=== PATIENT | female | born 1960 | race Caucasian/White ===

== ENCOUNTER 2016-08-03 15:38 | Emergency (ER) | payer SELFPAY ==
[2016-08-03 16:12] VITALS: BP 139/86
--- NOTE | 2016-08-03 16:17 | ER Document Report ---
ED Medical Screen (RME) - General Stated Complaint: RASH Mode of Arrival: Ambulatory Information source: Patient Notes: She presents emergency department with complaints of severe rash to her back and in between her breasts for the past 2 months. She reports areas are Painful. She reports at times it blisters up. Denies fever vomiting diarrhea. She reports she's been treated for trigeminal neurology. Came here today for severe pain. I have greeted and performed a rapid initial assessment of this patient. A comprehensive ED assessment and evaluation of the patient, analysis of test results and completion of the medical decision making process will be conducted by additional ED providers. TRAVEL OUTSIDE OF THE [place] IN LAST 30 DAYS: No - Related Data Allergies/Adverse Reactions: codeine [Codeine] Allergy (Verified 10/13/14 08:58) n/v acetaminophen [From Percocet] Adverse Reaction (Verified 10/13/14 08:58) n/v oxycodone HCl [From Percocet] Adverse Reaction (Verified 10/13/14 08:58) n/v Past Medical History Past Surgical History: Reports: Hx Tubal Ligation - Immunizations Hx Diphtheria, Pertussis, Tetanus Vaccination: Yes Physical Exam - Vital signs Vitals: Temp Pulse Resp BP Pulse Ox 98.6 F 78 18 139/86 H 97 08/03/16 16:11 08/03/16 16:11 08/03/16 16:11 08/03/16 16:11 08/03/16 16:11 Course - Vital Signs Vital signs: Temp Pulse Resp BP Pulse Ox 98.6 F 78 18 139/86 H 97 08/03/16 16:11 08/03/16 16:11 08/03/16 16:11 08/03/16 16:11 08/03/16 16:11
[2016-08-03 16:40] LABS: ABSOLUTE EOSINOPHILS # (AUTO) 0.3 10^3/uL (0.0-0.6); ABSOLUTE LYMPHOCYTES (AUTO) 1.2 10^3/uL (0.5-4.7); ABSOLUTE MONOCYTES (AUTO) 0.5 10^3/uL (0.1-1.4); ABSOLUTE NEUT (AUTO) 2.3 10^3/uL (1.7-8.2); EOSINOPHILS % (AUTO) 6.7 % (0-6); HEMATOCRIT 43.5 % (36.0-47.0); HEMOGLOBIN 14.9 g/dL (12.0-15.5); HGB HCT DIFFERENCE 1.2; LYMPHOCYTES % (AUTO) 27.6 % (13-45); MEAN CORPUSCULAR HEMOGLOBIN 31.9 pg (27.0-33.4); MEAN CORPUSCULAR HGB CONC 34.3 g/dL (32.0-36.0); MEAN CORPUSCULAR VOLUME 93 fl (80-97); MONOCYTES % (AUTO) 10.8 % (3-13); RED BLOOD COUNT 4.69 10^6/uL (3.72-5.28); RED CELL DISTRIBUTION WIDTH 12.9 % (11.5-14.0); SEGMENTED NEUTROPHILS % (AUTO) 53.9 % (42-78); WHITE BLOOD COUNT 4.3 10^3/uL (4.0-10.5)
[2016-08-03 16:57] LABS: ALANINE AMINOTRANSFERASE 24 U/L (9-52); ALKALINE PHOSPHATASE 36 U/L (38-126); ANION GAP 13 (5-19); ASPARTATE AMINO TRANSFERASE 21 U/L (14-36); BILIRUBIN,DIRECT 0.3 mg/dL (0.0-0.4); BILIRUBIN,TOTAL 0.4 mg/dL (0.2-1.3); BLOOD UREA NITROGEN 10 mg/dL (7-20); CALCIUM 9.5 mg/dL (8.4-10.2); CARBON DIOXIDE 26 mmol/L (22-30); CHLORIDE 107 mmol/L (98-107); CREATININE RESULT 0.78 mg/dL (0.52-1.25); GLUCOSE 103 mg/dL (75-110); POTASSIUM 3.5 mmol/L (3.6-5.0); SODIUM 145.7 mmol/L (137-145); TOTAL PROTEIN 6.7 g/dL (6.3-8.2)
== END 2016-08-03 20:18 | disposition left against medical advice (07) ==
LOC: ER 15:38
DX: R21 Rash and other nonspecific skin eruption (principal); Z53.20 Procedure and treatment not carried out because of patient's decision for unspecified reasons; Z88.5 Allergy status to narcotic agent
CPT/HCPCS: 36415; 80053; 85025; 99281

== ENCOUNTER 2016-08-04 18:40 | Emergency (ER) | payer SELFPAY ==
[2016-08-04 18:54] VITALS: BP 140/83
--- NOTE | 2016-08-04 20:17 | ER Document Report ---
ED Medical Screen (RME) - General Stated Complaint: ABCESS Mode of Arrival: Ambulatory Information source: Patient Notes: Patient with erythematous rash that started to trunk 2 months ago. Area is painful and pruritic. 2 weeks ago patient started to lose bruising along the periphery of the Marlon. Patient with petechial rash to lower extremities. Patient is currently being treated for migraines in her jaw as well as trigeminal neuralgia. hx: none I have greeted and performed a rapid initial assessment of this patient. A comprehensive ED assessment and evaluation of the patient, analysis of test results and completion of the medical decision making process will be conducted by additional ED providers. TRAVEL OUTSIDE OF THE [place] IN LAST 30 DAYS: No - Related Data Allergies/Adverse Reactions: codeine [Codeine] Allergy (Verified 08/03/16 16:17) n/v acetaminophen [From Percocet] Adverse Reaction (Verified 08/03/16 16:17) n/v oxycodone HCl [From Percocet] Adverse Reaction (Verified 08/03/16 16:17) n/v Past Medical History Renal/ Medical History: Denies: Hx Peritoneal Dialysis Past Surgical History: Reports: Hx Tubal Ligation - Immunizations Hx Diphtheria, Pertussis, Tetanus Vaccination: Yes Physical Exam - Vital signs Vitals: Temp Pulse Resp BP Pulse Ox 98.6 F 87 16 140/83 H 97 08/04/16 18:53 08/04/16 18:53 08/04/16 18:53 08/04/16 18:53 08/04/16 18:53 - Skin Skin Color: Petechiae - Bilateral lower extremities, Ecchymosis - Sacral area, lateral lower trunk Irregularity with: Tenderness, Inflammation Course - Vital Signs Vital signs: Temp Pulse Resp BP Pulse Ox 98.6 F 87 16 140/83 H 97 08/04/16 18:53 08/04/16 18:53 08/04/16 18:53 08/04/16 18:53 08/04/16 18:53
[2016-08-04 20:47] LABS: ABSOLUTE EOSINOPHILS # (AUTO) 0.4 10^3/uL (0.0-0.6); ABSOLUTE LYMPHOCYTES (AUTO) 1.5 10^3/uL (0.5-4.7); ABSOLUTE MONOCYTES (AUTO) 0.5 10^3/uL (0.1-1.4); BASOPHILS % (AUTO) 0.9 % (0-2); EOSINOPHILS % (AUTO) 7.5 % (0-6); HEMATOCRIT 44.2 % (36.0-47.0); HEMOGLOBIN 15.1 g/dL (12.0-15.5); HGB HCT DIFFERENCE 1.1; LYMPHOCYTES % (AUTO) 27.9 % (13-45); MEAN CORPUSCULAR HEMOGLOBIN 31.6 pg (27.0-33.4); MEAN CORPUSCULAR HGB CONC 34.2 g/dL (32.0-36.0); MEAN CORPUSCULAR VOLUME 92 fl (80-97); MONOCYTES % (AUTO) 9.4 % (3-13); RED BLOOD COUNT 4.78 10^6/uL (3.72-5.28); SEGMENTED NEUTROPHILS % (AUTO) 54.3 % (42-78); WHITE BLOOD COUNT 5.5 10^3/uL (4.0-10.5)
[2016-08-04 21:05] LABS: PROTHROMBIN TIME 13.2 SEC (11.4-15.4)
[2016-08-04 21:06] LABS: PARTIAL THROMBOPLASTIN TIME 29.1 SEC (23.5-35.8)
[2016-08-04 21:07] LABS: ALANINE AMINOTRANSFERASE 24 U/L (9-52); ALBUMIN 4.2 g/dL (3.5-5.0); ALKALINE PHOSPHATASE 38 U/L (38-126); ANION GAP 10 (5-19); ASPARTATE AMINO TRANSFERASE 23 U/L (14-36); BILIRUBIN,DIRECT 0.2 mg/dL (0.0-0.4); BILIRUBIN,TOTAL 0.3 mg/dL (0.2-1.3); BLOOD UREA NITROGEN 10 mg/dL (7-20); C-REACTIVE PROTEIN 13.4 mg/L (<10.0); CALCIUM 9.8 mg/dL (8.4-10.2); CARBON DIOXIDE 27 mmol/L (22-30); CHLORIDE 107 mmol/L (98-107); CREATININE RESULT 0.82 mg/dL (0.52-1.25); GLUCOSE 94 mg/dL (75-110); POTASSIUM 3.9 mmol/L (3.6-5.0); SODIUM 143.8 mmol/L (137-145); TOTAL PROTEIN 7.1 g/dL (6.3-8.2)
[2016-08-04 22:02] LABS: ERYTHROCYTE SEDIMENTATION RATE 31 mm/hr (0-30)
== END 2016-08-04 23:00 | disposition left against medical advice (07) ==
LOC: ER 18:40
DX: R21 Rash and other nonspecific skin eruption (principal); R23.3 Spontaneous ecchymoses; G43.909 Migraine, unspecified, not intractable, without status migrainosus; G50.0 Trigeminal neuralgia; Z88.5 Allergy status to narcotic agent; Z53.20 Procedure and treatment not carried out because of patient's decision for unspecified reasons
CPT/HCPCS: 36415; 80053; 85025; 85610; 85652; 85730; 86140; 99281

== ENCOUNTER 2018-07-19 14:07 | Emergency (ER) | payer SELFPAY ==
[2018-07-19] MEDS ORDERED: RINGERS SOLUTION,LACTATED 1,000 ML IV ONE (14:43)
--- NOTE | 2018-07-19 14:44 | ER Document Report ---
ED Medical Screen (RME) - General Chief Complaint: Flank Pain Stated Complaint: SIDE PAIN Time Seen by Provider: 07/19/18 14:43 Mode of Arrival: Ambulatory Information source: Patient Notes: This is a 58-year-old female with a history of trigeminal neuralgia, bladder tumor (status post resection) who presents to the emergency room with 3-day history of right flank pain, hematuria, nausea, generalized weakness. TRAVEL OUTSIDE OF THE [place] IN LAST 30 DAYS: No - Related Data Allergies/Adverse Reactions: codeine [Codeine] Allergy (Verified 07/19/18 14:12) n/v acetaminophen [From Percocet] Adverse Reaction (Verified 07/19/18 14:12) n/v oxycodone HCl [From Percocet] Adverse Reaction (Verified 07/19/18 14:12) n/v Past Medical History - Social History Chew tobacco use (# tins/day): No Frequency of alcohol use: None Drug Abuse: None Renal/ Medical History: Denies: Hx Peritoneal Dialysis Psychiatric Medical History: Reports: Hx Depression Past Surgical History: Reports: Hx Abdominal Surgery - bladder tumor removed, Hx Tubal Ligation - Immunizations Hx Diphtheria, Pertussis, Tetanus Vaccination: Yes Physical Exam - Vital signs Vitals: Temp Pulse Resp BP Pulse Ox 99.1 F 136 H 17 135/69 H 96 07/19/18 14:18 07/19/18 14:18 07/19/18 14:18 07/19/18 14:18 07/19/18 14:18 Course - Vital Signs Vital signs: Temp Pulse Resp BP Pulse Ox 99.1 F 136 H 17 135/69 H 96 07/19/18 14:18 07/19/18 14:18 07/19/18 14:18 07/19/18 14:18 07/19/18 14:18
[2018-07-19 15:27] LABS: ABSOLUTE EOSINOPHILS # (AUTO) 0.1 10^3/uL (0.0-0.6); ABSOLUTE LYMPHOCYTES (AUTO) 1.4 10^3/uL (0.5-4.7); ABSOLUTE MONOCYTES (AUTO) 1.1 10^3/uL (0.1-1.4); ABSOLUTE NEUT (AUTO) 6.7 10^3/uL (1.7-8.2); BASOPHILS % (AUTO) 0.4 % (0-2); EOSINOPHILS % (AUTO) 0.8 % (0-6); HEMATOCRIT 35.5 % (36.0-47.0); HEMOGLOBIN 11.7 g/dL (12.0-15.5); LYMPHOCYTES % (AUTO) 15.2 % (13-45); MEAN CORPUSCULAR HEMOGLOBIN 25.4 pg (27.0-33.4); MEAN CORPUSCULAR VOLUME 77 fl (80-97); MONOCYTES % (AUTO) 12.1 % (3-13); PLATELET COUNT 290 10^3/uL (150-450); RED CELL DISTRIBUTION WIDTH 17.4 % (11.5-14.0); SEGMENTED NEUTROPHILS % (AUTO) 71.5 % (42-78); TOTAL CELLS COUNTED % (AUTO) 100 %; WHITE BLOOD COUNT 9.3 10^3/uL (4.0-10.5)
[2018-07-19 15:35] LABS: APPEARANCE,URINE CLOUDY; BILIRUBIN,URINE NEGATIVE (NEGATIVE); COLOR,URINE AMBER; GLUCOSE, URINE NEGATIVE (NEGATIVE); KETONES,URINE NEGATIVE (NEGATIVE); LEUKOCYTE ESTERASE,URINE NEGATIVE (NEGATIVE); NITRITE,URINE NEGATIVE (NEGATIVE); PROTEIN,URINE 100 mg/dL (NEGATIVE); URINE SPECIFIC GRAVITY 1.024; UROBILINOGEN,URINE NEGATIVE mg/dL (<2.0)
[2018-07-19 15:44] LABS: ALANINE AMINOTRANSFERASE 22 U/L (9-52); ALBUMIN 4.4 g/dL (3.5-5.0); ALKALINE PHOSPHATASE 41 U/L (38-126); ANION GAP 10 (5-19); ASPARTATE AMINO TRANSFERASE 23 U/L (14-36); BILIRUBIN,DIRECT 0.2 mg/dL (0.0-0.4); BILIRUBIN,TOTAL 0.3 mg/dL (0.2-1.3); BLOOD UREA NITROGEN 11 mg/dL (7-20); CALCIUM 10.2 mg/dL (8.4-10.2); CARBON DIOXIDE 29 mmol/L (22-30); CHLORIDE 101 mmol/L (98-107); GLUCOSE 112 mg/dL (75-110); POTASSIUM 4.5 mmol/L (3.6-5.0); TOTAL PROTEIN 7.7 g/dL (6.3-8.2)
--- NOTE | 2018-07-19 16:07 | RADIOLOGY REPORT (SQ) ---
EXAM DESCRIPTION: CT ABD/PELVIS NO ORAL OR IV COMPLETED DATE/TIME: 07/19/2018 3:49 pm REASON FOR STUDY: right flank pain COMPARISON: None. TECHNIQUE: CT scan of the abdomen and pelvis performed without intravenous or oral contrast. Images reviewed with lung, soft tissue, and bone windows. Reconstructed coronal and sagittal MPR images revi ewed. All images stored on PACS. All CT scanners at this facility use dose modulation, iterative reconstruction, and/or weight based d osing when appropriate to reduce radiation dose to as low as reasonably achievable (ALARA). [facility]: Dose Right [facility]: CareDose [facility]: Dose Right [facility]: Teradose 4D [facility]: [employer] RADIATION DOSE: CT Rad equipment meets quality standard of care and radiation dose reduction techniq ues were employed. CTDIvol: 7.0 mGy. DLP: 347 mGy-cm.mGy. LIMITATIONS: None. FINDINGS: LOWER CHEST: 2 cm pleural-based nodule right lower lobe. Trace right pleural effusion and associated airspace disease. NON-CONTRASTED LIVER, SPLEEN, ADRENALS: Evaluation limited by lack of IV contrast. No identified sign ificant masses. PANCREAS: No masses. No peripancreatic inflammatory changes. GALLBLADDER: No identified stones by CT criteria. No inflammatory changes to suggest cholecystitis. RIGHT KIDNEY AND URETER: No suspicious masses. Assessment limited by lack of IV contrast. No signif icant calcifications. No hydronephrosis or hydroureter. LEFT KIDNEY AND URETER: No suspicious masses. Assessment limited by lack of IV contrast. No signifi cant calcifications. No hydronephrosis or hydroureter. AORTA AND RETROPERITONEUM: No aneurysm. No retroperitoneal masses or adenopathy. BOWEL AND PERITONEAL CAVITY: No obvious masses or inflammatory changes. No free fluid. APPENDIX: Normal. PELVIS, BLADDER, AND ABDOMINAL WALL:No abnormal masses. No free fluid. Bladder normal. BONES: No significant findings. OTHER: No other significant finding. IMPRESSION: 1. No acute findings in the abdomen. 2. 2 cm pulmonary nodule right lower lobe. Trace right pleural effusion and associated airspace dise ase, atelectasis versus pneumonia. COMMENT: Quality ID # [id number]: Final reports with documentation of one or more dose reduction techniques (e.g., Automated exposure control, adjustment of the mA and/or kV according to patient size, use of iterative reconstruction technique) TECHNICAL DOCUMENTATION: JOB ID: [id number] [employer]- All Rights Reserved Reading location - IP/workstation name: [email or web address]
--- NOTE | 2018-07-19 16:32 | ER Document Report ---
ED General - General Chief Complaint: Flank Pain Stated Complaint: SIDE PAIN Time Seen by Provider: 07/19/18 14:43 Mode of Arrival: Ambulatory Notes: 58-year-old female to the emergency department for evaluation of hematuria and right lower chest pain and shortness of breath. Patient states that she had some sort of bladder tumor which was benign. Had surgery over a year ago. Has not had any problems since that time. Denies any dysuria. States that urine was quite red today. No history of kidney stones. States that it really hurts in the right side of her chest when she takes a deep breath. Denies any trauma. Patient is a heavy smoker. Intermittent fevers. Worsening cough. TRAVEL OUTSIDE OF THE [place] IN LAST 30 DAYS: No - HPI Onset: Yesterday Onset/Duration: Gradual Quality of pain: Sharp Severity: Moderate Pain Level: 3 Associated symptoms: Nonproductive cough, Fever Exacerbated by: Coughing, Deep breathing - Related Data Allergies/Adverse Reactions: codeine [Codeine] Allergy (Verified 07/19/18 14:12) n/v acetaminophen [From Percocet] Adverse Reaction (Verified 07/19/18 14:12) n/v oxycodone HCl [From Percocet] Adverse Reaction (Verified 07/19/18 14:12) n/v Past Medical History - General Information source: Patient - Social History Smoking Status: Current Every Day Smoker Chew tobacco use (# tins/day): No Frequency of alcohol use: None Drug Abuse: None Family History: Reviewed & Not Pertinent Patient has suicidal ideation: No Patient has homicidal ideation: No Renal/ Medical History: Denies: Hx Peritoneal Dialysis Psychiatric Medical History: Reports: Hx Depression Past Surgical History: Reports: Hx Abdominal Surgery - bladder tumor removed, Hx Tubal Ligation - Immunizations Hx Diphtheria, Pertussis, Tetanus Vaccination: Yes Review of Systems - Review of Systems Notes: Constitutional: denies: Chills, Diaphoresis, Malaise, Weakness. Positive for fever EENT: denies: Eye discharge, Blurred vision, Tearing, Double vision, Nose congestion, Nose discharge, Throat swelling, Mouth pain Cardiovascular: denies: Palpitations, Heart racing, Orthopnea, +Dyspnea, +Chest pain Respiratory: +Cough, Hurts to breathe, Wheezing, +Shortness of breath Gastrointestinal: denies: Abdominal pain, Diarrhea, Nausea, Vomiting, Black stools, bright red blood in stool Genitourinary: denies: Burning, Dysuria, Discharge, Frequency, Flank pain, +Hematuria Musculoskeletal: denies: Joint pain, Joint swelling, Muscle pain, Muscle stiffness, back pain Hematologic/Lymphatic: denies: Anemia, Easy bleeding, Easy bruising, Blood clots Neurological/Psychological: denies: Confusion, Dementia, Depression, Loss of consciousness Skin: No lesions, no masses, no skin breakdown, no abscesses Physical Exam - Vital signs Vitals: Temp Pulse Resp BP Pulse Ox 99.1 F 136 H 17 135/69 H 96 07/19/18 14:18 07/19/18 14:18 07/19/18 14:18 07/19/18 14:18 07/19/18 14:18 Interpretation: Normal - General General appearance: Appears well, Alert - HEENT Head: Normocephalic, Atraumatic Eyes: Normal Pupils: PERRL - Respiratory Respiratory status: No respiratory distress Chest status: Pain with deep breathing Breath sounds: Wheezing, Other - Crackle at the right base not relieved with coughing Chest palpation: Normal - Cardiovascular Rhythm: Regular Heart sounds: Normal auscultation Murmur: No - Abdominal Inspection: Normal Distension: No distension Bowel sounds: Normal Tenderness: Nontender. No: Kathleen's sign, Guarding, Rebound Organomegaly: No organomegaly - Back Back: Normal, Nontender - Extremities General upper extremity: Normal inspection, Nontender, Normal color, Normal ROM, Normal temperature General lower extremity: Normal inspection, Nontender, Normal color, Normal ROM, Normal temperature, Normal weight bearing. No: Sachin's sign - Neurological Neuro grossly intact: Yes Cognition: Normal Orientation: AAOx4 Gilda Coma Scale Eye Opening: Spontaneous [place] Coma Scale Verbal: Oriented Gilda Coma Scale Motor: Obeys Commands [place] Coma Scale Total: 15 Speech: Normal Motor strength normal: LUE, RUE, LLE, RLE Sensory: Normal - Psychological Associated symptoms: Normal affect, Normal mood - Skin Skin Temperature: Warm Skin Moisture: Dry Skin Color: Normal Course - Re-evaluation Re-evalutation: 07/19/18 19:17 Abdomen/Pelvis CT 07/19/18 14:44 IMPRESSION: 1. No acute findings in the abdomen. 2. 2 cm pulmonary nodule right lower lobe. Trace right pleural effusion and associated airspace disease, atelectasis versus pneumonia. Chest CT 07/19/18 17:33 IMPRESSION: There is a 2.1 cm irregularly-shaped nodule in the posterior segment of the right lower lobe with some spiculated margins. There are scattered areas of subsegmental atelectasis -airspace disease in the inferior aspect of the right upper lobe. There is a small right pleural effusion with some irregular contour suggesting possible loculation and soft tissue thickening. Bulky adenopathy in the right hilus, subcarinal, and paratracheal locations, measuring up to 3 cm in diameter. Main airways appear patent though slightly narrowed in the right hilus. Laboratory 07/19/18 07/19/18 07/19/18 15:06 15:06 15:06 WBC 9.3 RBC 4.60 Hgb 11.7 L Hct 35.5 L MCV 77 L MCH 25.4 L MCHC 33.0 RDW 17.4 H Plt Count 290 Seg Neutrophils % 71.5 Lymphocytes % 15.2 Monocytes % 12.1 Eosinophils % 0.8 Basophils % 0.4 Absolute Neutrophils 6.7 Absolute Lymphocytes 1.4 Absolute Monocytes 1.1 Absolute Eosinophils 0.1 Absolute Basophils 0.0 Sodium 140.0 Potassium 4.5 Chloride 101 Carbon Dioxide 29 Anion Gap 10 BUN 11 Creatinine 0.77 Est GFR ( Amer) > 60 Est GFR (Non-Af Amer) > 60 Glucose 112 H Lactic Acid Calcium 10.2 Total Bilirubin 0.3 Direct Bilirubin 0.2 Neonat Total Bilirubin Not Reportable Neonat Direct Bilirubin Not Reportable Neonat Indirect Bili Not Reportable AST 23 ALT 22 Alkaline Phosphatase 41 Total Protein 7.7 Albumin 4.4 Urine Color ZUHAIR Urine Appearance CLOUDY Urine pH 6.0 Ur Specific [place] 1.024 Urine Protein 100 H Urine Glucose (UA) NEGATIVE Urine Ketones NEGATIVE Urine Blood LARGE H Urine Nitrite NEGATIVE Urine Bilirubin NEGATIVE Urine Urobilinogen NEGATIVE Ur Leukocyte Esterase NEGATIVE Urine WBC (Auto) 35 Urine RBC (Auto) >182 Urine Mucus (Auto) OCC Urine Ascorbic Acid 40 H 07/19/18 17:41 WBC RBC Hgb Hct MCV MCH MCHC RDW Plt Count Seg Neutrophils % Lymphocytes % Monocytes % Eosinophils % Basophils % Absolute Neutrophils Absolute Lymphocytes Absolute Monocytes Absolute Eosinophils Absolute Basophils Sodium Potassium Chloride Carbon Dioxide Anion Gap BUN Creatinine Est GFR ( Amer) Est GFR (Non-Af Amer) Glucose Lactic Acid 0.8 Calcium Total Bilirubin Direct Bilirubin Neonat Total Bilirubin Neonat Direct Bilirubin Neonat Indirect Bili AST ALT Alkaline Phosphatase Total Protein Albumin Urine Color Urine Appearance Urine pH Ur Specific [place] Urine Protein Urine Glucose (UA) Urine Ketones Urine Blood Urine Nitrite Urine Bilirubin Urine Urobilinogen Ur Leukocyte Esterase Urine WBC (Auto) Urine RBC (Auto) Urine Mucus (Auto) Urine Ascorbic Acid 07/19/18 19:21 Patient deftly has an abnormal urinalysis with a large amount of blood but no acute pathology seen on CT scan of the abdomen and pelvis however incidental findings on the chest seen. Repeat CT scan was performed of the chest which shows concerning findings for malignancy in the right lower lobe. I did discuss the case with the oncologist, Dr. Cortez who will see patient in the clinic tomorrow. Attempts starting her on some pain medication, breathing treatments and antibiotics to cover for infection. Has been informed that this is a very concerning diagnosis and that she will need very close urgent follow-up. Patient verbalized understanding of these instructions. - Vital Signs Vital signs: Temp Pulse Resp BP Pulse Ox 100.0 F 98 18 130/62 H 91 L 07/19/18 16:25 07/19/18 16:25 07/19/18 16:25 07/19/18 16:25 07/19/18 16:25 - Laboratory Result Diagrams: 07/19/18 15:06 07/19/18 15:06 Laboratory results interpreted by me: 07/19/18 07/19/18 07/19/18 15:06 15:06 15:06 Hgb 11.7 L Hct 35.5 L MCV 77 L MCH 25.4 L RDW 17.4 H Glucose 112 H Urine Protein 100 H Urine Blood LARGE H Urine Ascorbic Acid 40 H Discharge - Discharge Clinical Impression: Right lower lobe lung mass RLL pneumonia Qualifiers: Pneumonia type: due to unspecified organism Qualified Code(s): J18.1 - Lobar pneumonia, unspecified organism Hematuria Qualifiers: Hematuria type: unspecified type Qualified Code(s): R31.9 - Hematuria, unspecified Condition: Good Disposition: HOME, SELF-CARE Instructions: Pneumonia ([facility]), Growth or Mass, Pending Workup ([facility]), Hematuria ([facility]) Additional Instructions: You have a very concerning CT scan of the chest which could represent a malignancy. We are going to treat you for possible infection. This needs urgent follow-up. Please see the numbers provided below for the oncology service. They would like to see you tomorrow if possible. They have been made aware of you. Also, you may need to be seen by urologist as you have a large amount of blood in your urine. Based on your prior history this will need close follow-up. Continue to drink plenty of fluids. In the event that you notice that your pain or symptoms are getting worse and will be very important that you return. Take all of your medications as prescribed. In the event that your symptoms are getting worse, your breathing is getting worse or you have any other major concerns please do not hesitate to return. Prescriptions: Tramadol HCl [Ultram 50 mg Tablet] 50 mg PO Q6HP PRN 5 Days #20 tab PRN Reason: For Breakthrough Pain Albuterol Sulfate [Proair HFA Inhalation Aerosol 8.5 gm MDI] 2 puff IH Q4H PRN 7 Days #1 mdi PRN Reason: Azithromycin [Zithromax 250 mg Tablet] 250 mg PO ASDIR PRN #8 tablet PRN Reason: Meloxicam [Mobic] 15 mg PO DAILY PRN 30 Days #30 tablet PRN Reason: Referrals: ELENO GOSS MD [ACTIVE STAFF] - Follow up tomorrow
[2018-07-19] MEDS ORDERED: KETOROLAC TROMETHAMINE INJ/PF 30 MG/1 ML SDV IV ONE (17:12)
[2018-07-19] MEDS ORDERED: IPRATROPIUM/ALBUTEROL 0.5-2.5 MG/3 ML AMPUL NEB ONE (17:13)
--- NOTE | 2018-07-19 18:21 | RADIOLOGY REPORT (SQ) ---
EXAM DESCRIPTION: CT CHEST WITHOUT COMPLETED DATE/TIME: 07/19/2018 5:55 pm REASON FOR STUDY: SOB, COUGH COMPARISON: None. TECHNIQUE: CT scan performed of the chest without intravenous contrast. Images reviewed with lung, soft tissue and bone windows. Reconstructed coronal and sagittal MPR images reviewed. All images st ored on PACS. All CT scanners at this facility use dose modulation, iterative reconstruction, and/or weight based d osing when appropriate to reduce radiation dose to as low as reasonably achievable (ALARA). [facility]: Dose Right [facility]: CareDose [facility]: Dose Right [facility]: Teradose 4D [facility]: [employer] RADIATION DOSE: CT Rad equipment meets quality standard of care and radiation dose reduction techniq ues were employed. CTDIvol: 7.0 mGy. DLP: 304 mGy-cm. mGy. LIMITATIONS: No technical limitations. FINDINGS: LUNGS AND PLEURA: No pneumothorax. There is a 2.1 cm irregularly-shaped nodule in the po sterior segment of the right lower lobe with some spiculated margins. There are scattered areas of s ubsegmental atelectasis -airspace disease in the inferior aspect of the right upper lobe. There is a small right pleural effusion with some irregular contour suggesting possible loculation and soft tis aleksandar thickening. There are scattered areas of emphysema and a few scattered subcentimeter pulmonary n odules bilaterally. HILAR AND MEDIASTINAL STRUCTURES: Bulky adenopathy in the right hilus, subcarinal, and paratracheal l ocations, measuring up to 3 cm in diameter. No obvious aneurysm. Main airways appear patent though slightly narrowed in the right hilus. HEART AND VASCULAR STRUCTURES: No aneurysm. No pericardial effusion. UPPER ABDOMEN: No significant findings. Limited exam. THYROID AND OTHER SOFT TISSUES: No masses. No adenopathy. BONES: No significant finding. HARDWARE: None in the chest. OTHER: No other significant findings. IMPRESSION: There is a 2.1 cm irregularly-shaped nodule in the posterior segment of the right lower lobe with some spiculated margins. There are scattered areas of subsegmental atelectasis -airspace d isease in the inferior aspect of the right upper lobe. There is a small right pleural effusion with some irregular contour suggesting possible loculation and soft tissue thickening. Bulky adenopathy in the right hilus, subcarinal, and paratracheal locations, measuring up to 3 cm in diameter. Main airways appear patent though slightly narrowed in the right hilus. TECHNICAL DOCUMENTATION: JOB ID: [id number] Quality ID # [id number]: Final reports with documentation of one or more dose reduction techniques (e.g., Au tomated exposure control, adjustment of the mA and/or kV according to patient size, use of iterative reconstruction technique) 2010 [employer]- All Rights Reserved Reading location - IP/workstation name: [email or web address]
[2018-07-19] MEDS ORDERED: CEFTRIAXONE INJ 1000 MG VIAL IV ONE (19:12)
[2018-07-19 20:57] VITALS: BP 127/66
== END 2018-07-19 20:29 | disposition home or self-care (01) ==
LOC: ER 14:07
DX: J18.1 Lobar pneumonia, unspecified organism (principal); R31.9 Hematuria, unspecified; R91.8 Other nonspecific abnormal finding of lung field; R10.9 Unspecified abdominal pain; R07.9 Chest pain, unspecified; R06.02 Shortness of breath; F17.200 Nicotine dependence, unspecified, uncomplicated; Z88.6 Allergy status to analgesic agent; Z98.51 Tubal ligation status
CPT/HCPCS: 94640; 99284; 96361; 96375; 96365; 36415; 87040; 87086; 85025; 80053; 81001; 83605; 71250; 74176; J1885; J0696; J7120; J7620

== ENCOUNTER → 2018-08-06 | Outpatient (CLI) | payer SELFPAY ==
--- NOTE | 2018-08-06 12:50 | RADIOLOGY REPORT (SQ) ---
EXAM DESCRIPTION: MRI HEAD COMBO COMPLETED DATE/TIME: 08/06/2018 9:32 am REASON FOR STUDY: MALIGNANT NEOPLASM OF LOWER LOBE, RIGHT BRONCHUS OR LUNG C34.31 MALIGNANT NEOPLAS M OF LOWER LOBE, RIGHT BRONCHUS OR L COMPARISON: None. TECHNIQUE: Multiplanar imaging includes noncontrasted T1, T2, FLAIR, diffusion with ADC map and post gadolinium contrast T1 sequences. MP rage. Images stored on PACS. CONTRAST TYPE AND DOSE: 10 mL Dotare[employer]. RENAL FUNCTION: Not indicated. ACR Type II contrast agent associated with few, if any, unconfounded cases of NSF LIMITATIONS: None. FINDINGS: ANATOMY: No anomalies. Normal vascular flow voids. Pituitary fossa normal. CSF SPACES: Normal in size and contour. No hemorrhage. CEREBRUM: 2.5 cm necrotic rim enhancing mass lesion in the left parietal lobe with extensive adjacent vasogenic edema. Compression of the ipsilateral ventricle. No hemorrhage. No midline shift. POSTERIOR FOSSA: No signal alteration. No hemorrhage. No edema, masses, or mass effect. Internal awilda tory canals, cerebellopontine angles, mastoids normal. No enhancing lesions. No abnormal enhancement post contrast. DIFFUSION IMAGING: Negative for acute or subacute infarction. ORBITS: No masses. Globes normal. PARANASAL SINUSES: No fluid levels. Mucosa normal. OTHER: No other significant finding. IMPRESSION: Isolated metastatic lesion in the left parietal lobe, necrotic with rim enhancement inge uring 2.5 cm, with the vasogenic edema and compression of the ipsilateral ventricle. No midline shift. EVIDENCE OF ACUTE STROKE: NO. TECHNICAL DOCUMENTATION: JOB ID: [id number] [employer]- All Rights Reserved Reading location - IP/workstation name: [email or web address]
== END ==
LOC: RAD 08:28
PROVIDERS: ATTEND Internal Medicine Hematology & Oncology
DX: C34.31 Malignant neoplasm of lower lobe, right bronchus or lung (principal)
CPT/HCPCS: 82565; 70553; A9576

== ENCOUNTER → 2018-08-07 | Outpatient (CLI) | payer SELFPAY ==
--- NOTE | 2018-08-13 13:44 | RADIOLOGY REPORT (SQ) ---
EXAM DESCRIPTION: PET CT SKULL/THIGH COMPLETED DATE/TIME: 08/13/2018 8:20 am REASON FOR STUDY: C34.31 MALIGNANT NEOPLASM OF LOWER LOBE, RIGHT BRONCHUS OR LUNG C34.31 MALIGNANT NEOPLASM OF LOWER LOBE, RIGHT BRONCHUS OR L COMPARISON: MRI brain 08/06/2018 CT chest abdomen pelvis 07/19/2018 RADIONUCLIDE AND DOSE: 10.9 mCi F18 FDG The route of agent administration: Intravenous FASTING BLOOD SUGAR: 114 mg/dl CONTRAST TYPE AND DOSE: No CT contrast given. TECHNIQUE: Blood glucose level was verified. Above dose of FDG was injected intravenously. 2-D seg mented attenuation correction images were obtained from the base of the skull to the midthighs. Nonc ontrast CT images were obtained for attenuation correction and fusion with emission images. CT image s were performed without oral or intravenous contrast and are not sensitive for parenchymal lesions. A series of overlapping emission PET images were obtained. Images reviewed and manipulated at [facility] by the radiologist. Images stored on PACS. LIMITATIONS: None. FINDINGS: HEAD AND NECK: No areas of abnormal metabolic activity in the soft tissues of the head and neck. There is brown fat activity in the axillary and supraclavicular regions CHEST: Malignant appearing mediastinal adenopathy is present as follows: Right paratracheal 3.7 x 3 cm lymph node axial image 84 SUV 7.1 AP window 2.8 x 1.8 cm lymph node axial image 90, SUV 4.8 Right hilar 4.5 x 3.2 cm lymph node axial image 102, SUV 7 Sub- carinal 3.4 x 2.3 cm lymph node axial image 103, SUV of 10.2 In the posterior aspect right lower lobe on axial image 112, a 1.6 x 1 cm posterior right lower lobe pleural-based nodule is present on axial image 112 with SUV 2.3. In the right lower lobe lateral costophrenic sulcus just above the hemidiaphragm, axial image 128, at electasis is present within density 2.3 x 1.6 cm in size with SUV of 1.1. There is a rind of consoli dation around the periphery of the left lung base, non metabolic also likely atelectasis No pleural effusions. No abnormal increased pleural activity. There is brown fat activity in the pa raspinal soft tissues along the thoracic spine. ABDOMEN AND PELVIS: Although there is no discrete mass identified, there is increased metabolic acti vity along the right adrenal gland with SUV 3.4, raising a question of a metastatic right adrenal nod ule. PROXIMAL LOWER EXTREMITIES: No areas of abnormal metabolic activity in the soft tissues of the lower extremities. ADDITIONAL CT FINDINGS: . Upper lobes are hyperlucent from obstructive disease. Noncalcified granul erick right upper lobe less than 4 mm in size axial image 81 OTHER: Blood pool background activity 1.8 SUV, liver background activity 2.2 SUV IMPRESSION: Malignant mediastinal and right hilar adenopathy Abnormal increased metabolic activity right adrenal gland without a discrete mass Patchy atelectasis in the right lateral and left lateral and posterior costophrenic sulci 1.6 x 1 cm nodule posterior right lower lobe with SUV 2.3 just above baseline, nonspecific TECHNICAL DOCUMENTATION: JOB ID: [id number] [employer]- All Rights Reserved Reading location - IP/workstation name: [email or web address]
== END ==
LOC: RAD 16:14
PROVIDERS: ATTEND Internal Medicine Hematology & Oncology
DX: C34.31 Malignant neoplasm of lower lobe, right bronchus or lung (principal)
CPT/HCPCS: 78815; A9552

== ENCOUNTER 2018-08-30 18:12 | Emergency (ER) | payer SELFPAY | END 2018-08-30 18:42 | disposition left against medical advice (07) | LOC: ER 18:12 | DX: Z53.21 Procedure and treatment not carried out due to patient leaving prior to being seen by health care provider (principal); M79.605 Pain in left leg ==

== ENCOUNTER → 2018-08-30 | Outpatient (CLI) | payer SELFPAY ==
--- NOTE | 2018-08-30 18:47 | RADIOLOGY REPORT (SQ) ---
EXAM DESCRIPTION: VENOUS UNILATERAL LOWER COMPLETED DATE/TIME: 08/30/2018 6:17 pm REASON FOR STUDY: LLE PAIN/SWELLING M79.609 PAIN IN UNSPECIFIED LIMB M79.89 OTHER SPECIFIED SOFT T ISSUE DISORDERS COMPARISON: None. TECHNIQUE: Dynamic and static reyes scale and color images acquired of the left leg venous system. Se lected spectral images acquired with additional compression and augmentation maneuvers. The contralat eral common femoral vein and saphenofemoral junction were also imaged. Images stored on PACS. LIMITATIONS: None. FINDINGS: DVT and SVT air seen from the common femoral vein to the ankle. The greater saphenous vei n is occluded. CONTRALATERAL COMMON FEMORAL VEIN AND SAPHENOFEMORAL JUNCTION: Normal phasicity, compression and augmentation. No visualized echogenic material on reyes scale. No de fects on color images. IMPRESSION: Extensive DVT and SVT in the left lower extremity. TECHNICAL DOCUMENTATION: JOB ID: [id number] [email or web address]- All Rights Reserved Reading location - IP/workstation name: [email or web address]
== END ==
LOC: SP 16:50
PROVIDERS: ATTEND Internal Medicine Hematology & Oncology
DX: I82.412 Acute embolism and thrombosis of left femoral vein (principal)
CPT/HCPCS: 93971